=== PATIENT | male | born 1990 | race Caucasian/White ===

== ENCOUNTER 2017-07-08 11:58 | Emergency (ER) | payer BC ==
--- NOTE | 2017-07-08 14:04 | ED ---
General Adult HPI - General Chief complaint: Recheck/Abnormal Lab/Rx Stated complaint: spitting up blood, tired Time Seen by Provider: 07/08/17 12:59 Source: patient, RN notes reviewed, old records reviewed Mode of arrival: ambulatory Limitations: no limitations - History of Present Illness Initial comments: This is a 26-year-old male to the ER for evaluation. Patient is a for evaluation of cough. Patient has no medical history is a nonsmoker. Patient states he's been a little bit fatigued with a cough for a week occasionally wakes up in the morning coughing and vomiting with blood. Patient denies any nausea vomiting, no abdominal pain. No prior history of vomiting or coughing of blood - Related Data Home Medications Medication Instructions Recorded Confirmed No Known Home Medications [No 07/08/17 07/08/17 Known Home Medications] Allergies Allergy/AdvReac Type Severity Reaction Status Date / Time No Known Allergies Allergy Verified 07/08/17 13:13 Review of Systems ROS Statement: Those systems with pertinent positive or pertinent negative responses have been documented in the HPI. ROS Other: All systems not noted in ROS Statement are negative. Past Medical History Past Medical History: No Reported History History of Any Multi-Drug Resistant Organisms: None Reported Past Surgical History: Hernia Repair, Orthopedic Surgery Past Psychological History: No Psychological Hx Reported Smoking Status: Never smoker Past Alcohol Use History: None Reported Past Drug Use History: None Reported General Exam Limitations: no limitations General appearance: alert, in no apparent distress Head exam: Present: atraumatic, normocephalic, normal inspection Eye exam: Present: normal appearance, PERRL, EOMI. Absent: scleral icterus, conjunctival injection, periorbital swelling ENT exam: Present: normal exam, mucous membranes moist Neck exam: Present: normal inspection. Absent: tenderness, meningismus, lymphadenopathy Respiratory exam: Present: normal lung sounds bilaterally. Absent: respiratory distress, wheezes, rales, rhonchi, stridor Cardiovascular Exam: Present: regular rate, normal rhythm, normal heart sounds. Absent: systolic murmur, diastolic murmur, rubs, gallop, clicks GI/Abdominal exam: Present: soft, normal bowel sounds. Absent: distended, tenderness, guarding, rebound, rigid Extremities exam: Present: normal inspection, full ROM, normal capillary refill. Absent: tenderness, pedal edema, joint swelling, calf tenderness Back exam: Present: normal inspection Neurological exam: Present: alert, oriented X3, CN II-XII intact Psychiatric exam: Present: normal affect, normal mood Skin exam: Present: warm, dry, intact, normal color. Absent: rash Course Vital Signs 07/08/17 12:54 Temperature 98.5 F Pulse Rate 60 Respiratory 20 Rate Blood Pressure 123/70 O2 Sat by Pulse 100 Oximetry - Reevaluation(s) Reevaluation #1: 07/08/17 14:04 Patient has no coughing of blood currently Medical Decision Making - Medical Decision Making 26 male the ER for evaluation of cough and hemoptysis. X-rays negative. Patient does have viral syndrome, hemoptysis - Lab Data Lab Results 07/08/17 07/08/17 Range/Units 13:30 13:30 Heterophile Antibody Negative (Negative) Influenza Type A RNA Not Detected (Not Detectd) Influenza Type B (PCR) Not Detected (Not Detectd) - Radiology Data Radiology results: report reviewed (Chest x-rays negative), image reviewed Disposition Clinical Impression: Hemoptysis, Viral syndrome Disposition: HOME SELF-CARE Condition: Good Instructions: Hemoptysis (ED), Viral Syndrome (ED) Referrals: None,Stated [Primary Care Provider] - 1-2 days
[2017-07-08] MEDS ORDERED: AZITHROMYCIN 500 MG TAB PO STA (14:30)
[2017-07-08] MEDS ORDERED: DEXAMETHASONE SOD PHOSPHATE 10 MG/ML 1 ML VIAL IM STA (14:30)
--- NOTE | 2017-07-08 14:31 | XR ---
EXAMINATION TYPE: XR chest 2V DATE OF EXAM: 07/08/2017 COMPARISON: NONE HISTORY: Hemoptysis TECHNIQUE: Frontal and lateral views of the chest are obtained. FINDINGS: There is no focal air space opacity, pleural effusion, or pneumothorax seen. The cardiac silhouette size is within normal limits. The osseous structures are intact. IMPRESSION: No acute cardiopulmonary process.
[2017-07-08 15:02] VITALS: BP 118/68; PULSE 62; RESP 18; TEMP 98.7
== END 2017-07-08 15:01 | disposition home or self-care (01) ==
LOC: EC 11:58
DX: B34.9 Viral infection, unspecified (principal); R04.2 Hemoptysis
CPT/HCPCS: 36415; 86308; 87502; 71046; 99284; 96372; J1100